=== PATIENT | female | born 1955 | race Caucasian/White ===

== ENCOUNTER 2018-02-09 12:37 | Day surgery (SDC) | payer OTHER ==
[~2018-02-09 12:37] MED LIST: MIDAZOLAM 2 MG/2 ML SOL ONE
[2018-02-09] MEDS: PROPARACAINE HCL 0.5% OPHTHALMIC SOL ONE ×3 (13:13→13:58)
[2018-02-09] MEDS: TROPICAMIDE 1% OPHTH SOL ONE ×3 (13:13→13:22)
[2018-02-09] MEDS: CYCLOPENTOLATE 1% SOL ONE ×3 (13:13→13:22)
[2018-02-09] MEDS ORDERED: KETOROLAC/HOME 0.5% SOL OP ONE ×3 (13:14→13:22)
[2018-02-09] MEDS ORDERED: GATIFLOXACIN 2.5 ML DROP SOL OP ONE ×2 (13:14→13:17)
[2018-02-09] MEDS: PHENYLEPHRINE HCL 10% OPHTHAL SOL ONE ×2 (13:16→13:22)
[2018-02-09] MEDS ORDERED: POVIDONE IODINE 5% SOL ONE (13:52)
[2018-02-09] MEDS ORDERED: BSS W/ 0.5 MG P.F. EPI 1 BOTTLE ONE (13:52)
[2018-02-09] MEDS ORDERED: LIDOCAINE HCL 2% MPF 10 ML SOL ONE (13:52)
[2018-02-09 14:29] VITALS: O2SAT 98
[2018-02-09] MEDS ORDERED: ACETAZOLAMIDE 250 MG PO ONE (14:35)
== END 2018-02-09 14:55 | disposition home or self-care (01) | DRG 125 ==
LOC: SURG 12:37
PROVIDERS: ATTEND Ophthalmology
DX: H25.89 Other age-related cataract (principal)
CPT/HCPCS: J2250; A9270-GY

== ENCOUNTER 2018-03-30 14:02 | Day surgery (SDC) | payer OTHER ==
[2018-03-30] MEDS: CYCLOPENTOLATE 1% SOL ONE ×3 (14:19→14:26)
[2018-03-30] MEDS: PHENYLEPHRINE HCL 10% OPHTHAL SOL ONE ×3 (14:19→14:26)
[2018-03-30] MEDS: TROPICAMIDE 1% OPHTH SOL ONE ×3 (14:19→14:26)
[2018-03-30] MEDS ORDERED: KETOROLAC/HOME 0.5% SOL LEFTEYE ONE ×3 (14:20→14:26)
[2018-03-30] MEDS ORDERED: GATIFLOXACIN 2.5 ML DROP SOL LEFTEYE ONE ×2 (14:20→14:23)
[2018-03-30] MEDS ORDERED: LIDOCAINE HCL 2% MPF 10 ML SOL ONE (14:22)
[2018-03-30] MEDS ORDERED: BSS W/ 0.5 MG P.F. EPI 1 BOTTLE ONE (14:22)
[2018-03-30] MEDS ORDERED: POVIDONE IODINE 5% SOL ONE (14:22)
[2018-03-30 15:03] VITALS: BP 106/72; PULSE 61; RESP 20; TEMP 97.9; O2SAT 96
[2018-03-30] MEDS ORDERED: ACETAZOLAMIDE 250 MG PO ONE (15:05)
== END 2018-03-30 15:25 | disposition home or self-care (01) | DRG 125 ==
LOC: SURG 14:02
PROVIDERS: ATTEND Ophthalmology
DX: H25.89 Other age-related cataract (principal)
CPT/HCPCS: J2250; A9270-GY

== ENCOUNTER 2018-08-28 16:54 | Emergency (ER) | payer OTHER ==
[2018-08-28 17:57] VITALS: RESP 16; TEMP 97.8
[2018-08-28] MEDS ORDERED: AUGMENTIN(FRIDGE) 400 MG/5 ML PO ONE (18:09)
[2018-08-28] MEDS ORDERED: AMOXIL/CLAVULANATE 400/5 ML PDR ONE (18:17)
[2018-08-28 18:36] VITALS: BP 108/83; PULSE 84; O2SAT 93
== END 2018-08-28 18:20 | disposition home or self-care (01) | DRG 159 ==
LOC: ED 16:54
DX: K08.89 Other specified disorders of teeth and supporting structures (principal); K04.7 Periapical abscess without sinus
CPT/HCPCS: 99282; A9270-GY